=== PATIENT | male | born 1970 | race Caucasian/White ===

== ENCOUNTER 2017-06-29 16:25 | Emergency (ER) | payer BC ==
[~2017-06-29] VITALS: Ht 177.8 cm; Wt 103.5 kg
[2017-06-29 16:27] VITALS: Ht 177.8 cm; Wt 103.5 kg
[2017-06-29] MEDS ORDERED: KETOROLAC 60 MG INJ IM STA (20:02)
--- NOTE | 2017-06-29 20:20 | ERD ---
ER Documentation Chief Complaint Date/Time DATE: 06/29/17 TIME: 20:16 Chief Complaint left leg pain x 2 days; no trauma HPI 46-year-old male presents in emergency department for complaint of left lower leg pain for 2 days. Patient had a history of surgery on the left ankle, metal hardware in the affected areas, complaints of left lower leg pain, left ankle pain radiates from the left ankle to the left calf area left foot, feels on and off numbness and tingling at times. Patient denies any swelling. Patient denies any direct trauma on affected area. ROS All systems reviewed and are negative except as per history of present illness. Medications Home Meds Reported Medications [none] Unknown Strength No Conflict Check 06/29/17 Allergies Allergies: Coded Allergies: No Known Allergy (Unverified , 07/10/12) PMhx/Soc History of Surgery: Yes (ankle surgery) Anesthesia Reaction: No Hx Neurological Disorder: No Hx Respiratory Disorders: No Hx Cardiac Disorders: No Hx Psychiatric Problems: No Hx Miscellaneous Medical Probl: Yes (dyslipidemia) Hx Alcohol Use: Yes Hx Substance Use: No Hx Tobacco Use: Yes FmHx Family History: No coronary disease, No diabetes, No other Physical Exam Vitals Vital Signs Date Time Temp Pulse Resp B/P Pulse Ox O2 Delivery O2 Flow Rate FiO2 06/29/17 16:27 97.8 100 18 129/78 98 Physical Exam GENERAL: The patient is well developed and appropriate for usual state of health, in no apparent distress. CHEST: Clear to auscultation bilaterally. There are no rales, wheezes or rhonchi. HEART: Regular rate and rhythm. No murmurs, clicks, rubs or gallops. No S3 or S4. ABDOMEN: Soft, nontender and nondistended. Good bowel sounds. No rebound or guarding. No gross peritonitis. No gross organomegaly or masses. No Muro sign or McBurney point tenderness. BACK: No midline or flank tenderness. EXTREMITIES:Able to do full range of motion of the left ankle without initiation , no deformity noted, nontender on palpation. Negative Homans sign. No swelling noted. No redness noted. Equal pulses bilaterally. There is no peripheral clubbing, cyanosis or edema. No focal swelling or erythema. Full range of motion. Grossly neurovascularly intact. NEURO: Alert and oriented. Cranial nerves 2-12 intact. Motor strength in all 4 extremities with 5/5 strength. Sensation grossly intact. Normal speech and gait. SKIN: There is no apparent rash or petechia. The skin is warm and dry. HEMATOLOGIC AND LYMPHATIC: There is no evidence of excessive bruising or lymphedema. No gross cervical, axillary, or inguinal lymphadenopathy. Results 24 hrs Current Medications Medications (Trade) Dose Ordered Sig/Moo Route PRN Reason Start Time Stop Time Status Last Admin Dose Admin Ketorolac Tromethamine (Toradol) 60 mg ONCE STAT IM 06/29/17 20:02 06/29/17 20:03 DC 06/29/17 20:10 Patient was given medication for pain here in emergency department, after treatment, patient verbalized feeling much better. Patient's pain is improved. PROCEDURE: XR Ankle. CLINICAL INDICATION: Left ankle pain TECHNIQUE: AP, oblique and lateral views of the left ankle were performed. COMPARISON: None. FINDINGS: There is normal mineralization and alignment. No fracture or osseous lesion is identified. The joints are normal. The soft tissues are unremarkable. IMPRESSION: Unremarkable left ankle. RPTAT: [facility] Physician Mo Date Time Electronically viewed and signed by Physician Mo on 06/29/2017 21:15 RS/ CC: MAKAYLA MARIANO NP PROCEDURE: US DVT. CLINICAL INDICATION: Left lower extremity pain. TECHNIQUE: Multiple longitudinal and transverse images of the left lower extremity veins were obtained with cleaning scale and color Doppler imaging. 2D grayscale measurements with compression, color Doppler flow, and augmentation was performed. The calf veins were interrogated as well. COMPARISON: No prior studies are available for comparison. FINDINGS: The left common femoral, femoral and popliteal veins are normally compressible throughout. Color flow demonstrates normal filling of the vessels. Normal waveforms are visualized and there is normal response to augmentation. The calf veins are visualized and are equally unremarkable. IMPRESSION: 1. No left lower extremity DVT. RPTAT: HTAR .Lauri Parish MD, Date Time Electronically viewed and signed by .Lauri Parish MD, on 06/29/2017 22:00 .R/ CC: MAKAYLA MARIANO NP Procedures/MDM Medical Decision Making: Patient's pain is most likely consistent with a leg strain or neuropathic pain. There is no suspicion for neurovascular compromise. Patient has intact sensation and circulation of the affected extremity. There is low suspicion for septic arthritis. Patient does not have any fever. Radiology exams of the affected area does not show any fracture or dislocation. Disposition: Home. Patient is given prescription for ibuprofen for mild to moderate pain, norco for severe pain. Patient was advised to elevate the affected area and apply ice on affected area. Patient was advised that if symptoms are worse, numbness, tingling, high fever, unable to move joint, worsening symptoms, to return to emergency department immediately. Otherwise, patient is advised to follow up with the primary care doctor in 5-7 days for reevaluation of symptoms. Departure Diagnosis: Primary Impression: Pain of left leg Condition: Stable Patient Instructions: Muscle Strain, Abdomen Additional Instructions: Patient is given prescription for ibuprofen for mild to moderate pain, norco for severe pain. Patient was advised to elevate the affected area and apply ice on affected area. Patient was advised that if symptoms are worse, numbness, tingling, high fever, unable to move joint, worsening symptoms, to return to emergency department immediately. Otherwise, patient is advised to follow up with the primary care doctor in 5-7 days for reevaluation of symptoms. MAKAYLA MARIANO NP Jun 29, 2017 20:19
--- NOTE | 2017-06-29 21:16 | RADRPT ---
PROCEDURE: XR Ankle. CLINICAL INDICATION: Left ankle pain TECHNIQUE: AP, oblique and lateral views of the left ankle were performed. COMPARISON: None. FINDINGS: There is normal mineralization and alignment. No fracture or osseous lesion is identified. The joint s are normal. The soft tissues are unremarkable. IMPRESSION: Unremarkable left ankle. RPTAT: [facility] Physician Mo Date Time Electronically viewed and signed by Physician Mo on 06/29/2017 21:15 RS/
--- NOTE | 2017-06-29 22:01 | RADRPT ---
PROCEDURE: US DVT. CLINICAL INDICATION: Left lower extremity pain. TECHNIQUE: Multiple longitudinal and transverse images of the left lower extremity veins were obta ined with cleaning scale and color Doppler imaging. 2D grayscale measurements with compression, color D oppler flow, and augmentation was performed. The calf veins were interrogated as well. COMPARISON: No prior studies are available for comparison. FINDINGS: The left common femoral, femoral and popliteal veins are normally compressible throughout. Color fl ow demonstrates normal filling of the vessels. Normal waveforms are visualized and there is normal response to augmentation. The calf veins are visualized and are equally unremarkable. IMPRESSION: 1. No left lower extremity DVT. RPTAT: HTAR .Lauri Parish MD, MD Date Time Electronically viewed and signed by .Lauri Parish MD, on 06/29/2017 22:00 .R/
[2017-06-29] MEDS ORDERED: HYDR-906 PO (22:07)
[2017-06-29] MEDS ORDERED: IBUP-1542 PO (22:07)
[2017-06-29 22:42] VITALS: BP 122/75; PULSE 72; RESP 18; TEMP 98.1
== END 2017-06-29 22:43 | disposition home or self-care (01) ==
LOC: FTE 16:25
DX: M79.662 Pain in left lower leg (principal); Z87.891 Personal history of nicotine dependence
CPT/HCPCS: 73610; 93971; 96372; J1885; Z7502

== ENCOUNTER 2018-08-12 08:12 | Day surgery (SDC) | END 2018-08-12 10:59 | disposition home or self-care (01) ==